=== PATIENT | female | born 1980 | race Caucasian/White ===

== ENCOUNTER 2020-03-28 16:04 | Emergency (ER) | payer BC, SELFPAY ==
--- NOTE | ~2020-03-28 | XR_ITS ---
XR chest 2V 03/28/2020 17:06 Indication: Cough. Diminished breath sounds. Procedure: 2 view chest Comparison: No prior studies for comparison. Findings: Bibasilar atelectasis. Heart size normal. No focal pneumonia, pleural effusion, edema or pn eumothorax. Impression: 1: Bibasilar atelectasis. Reviewed, dictated and finalized at location A. Impression: 1: Bibasilar atelectasis.
[2020-03-28 16:10] VITALS: BP 128/74; PULSE 86; RESP 28; TEMP 37; O2SAT 93
--- NOTE | 2020-03-28 16:17 | ED.SOB ---
HPI - SOB/Dyspnea General Stated Complaint: chest congestion/cough Time Seen by Provider: 03/28/20 16:17 Source: patient and RN notes reviewed Mode of arrival: ambulatory Limitations: no limitations History of Present Illness HPI Narrative: 40-year-old female presents with concern for cough, chest congestion, feeling short of breath. Reports she has not smoked for approximately 1 year. Reports prior to that she had a 2-year history of smoking. She denies fever, body aches, chills, sweats, rhinorrhea, nasal congestion, sore throat. Denies any interventions for her symptoms. She denies a history of asthma MD elicited complaint: cough Related Data Allergies Allergy/AdvReac Type Severity Reaction Status Date / Time No Known Allergies Allergy Verified 06/24/19 13:46 Review of Systems Review of Systems: Narrative: CONSTITUTIONAL: Denies malaise, chills, sweats, or fever. EYES: Denies visual changes, redness, or discharge. ENT: Denies rhinorrhea, congestion, sinus pain, otalgia and sore throat. CARDIOVASCULAR: Denies chest pain, palpitations, or edema. RESPIRATORY: Reports cough, chest congestion, ear dyspnea. GASTROINTESTINAL: Denies abdominal pain, nausea, vomiting, diarrhea SKIN: Denies rash or itching. MUSCULOSKELETAL: Denies myalgia. NEUROLOGIC: Denies headache. All systems reviewed & are unremarkable except as noted in HPI and below PMFSH Comments At time of signature, agree with nursing past medical, surgical, social and family history. There is no relevant family history pertinent to the presenting complaint Exam Narrative: Exam Narrative: GENERAL: Well-appearing, well-nourished, and in no acute distress. HEAD: Normocephalic EYES: PERRLA, conjunctivae clear ENT: Nares clear, turbinates erythematous, clear discharge. Mucous membranes moist. TM pearly sosa with dull light reflex bilaterally; no tragal tenderness. Oropharynx not erythematous without lesions. Tonsils not enlarged and without exudate, no drooling, no hoarseness, no trismus, uvula midline. NECK: Supple. No lymphadenopathy CHEST: Inspiratory and expiratory wheeze throughout, aeration poor, breath sounds equal. No rhonchi, rales, or stridor. No respiratory distress, speaks in full sentences. HEART: Regular rate and rhythm. No murmur heard. SKIN: Warm, dry, no rash. NEURO: Alert and oriented x3. PSYCH: Normal mood and affect Course Course Emergency Course: Patient is aware of diagnosis, understands and agrees to treatment plan. Anticipatory guidance given. Patient agrees to follow-up as directed and is aware of reasons to seek care at the emergency department. Portions of this record may have been created with voice recognition software Vital Signs Vital signs: Vital Signs Temperature 98.6 F 03/28/20 16:10 Pulse Rate 86 03/28/20 16:10 Respiratory Rate 28 H 03/28/20 16:10 Blood Pressure 128/74 03/28/20 16:10 Pulse Oximetry 93 03/28/20 16:10 Temperature 98.6 F 03/28/20 16:10 Pulse Rate 86 03/28/20 16:10 Respiratory Rate 28 H 03/28/20 16:10 Blood Pressure 128/74 03/28/20 16:10 Pulse Oximetry 93 03/28/20 16:10 Reviewed. MDM - SOB/Dyspnea MDM Narrative Medical decision making narrative: Differential diagnosis considered: Alfredo virus, strep pharyngitis, allergic rhinitis, upper respiratory tract infection, sinusitis, rhinosinusitis, nasopharyngitis. viral pharyngitis, otitis media, otitis externa, pneumonia, bronchitis, viral cough syndrome, viral syndrome, and influenza. Exam findings show no acute concerns or changes; patient is non-toxic appearing and is in no distress. Patient is appropriate for outpatient treatment and follow-up. Critical Care Time Critical Care Time Critical Care Time: No Discharge Plan Discharge Prescriptions: No Action amoxicillin-pot clavulanate [Augmentin] 875-125 mg tablet 1 tablet PO Q12H 10 Days Qty: 20 RF: 0
[2020-03-28] MEDS: ALBUTEROL SULFATE NEB 2.5 MG/3 ML INH INHALATION ×2 (16:29→17:23)
[2020-03-28] MEDS: IPRATROPIUM BR 0.02% INH SOLN 0.5 MG/2.5 ML VIAL INHALATION ×2 (16:30→17:23)
[2020-03-28] MEDS: methylPREDNISolone SOD SUCC 125 MG VIAL IM (16:30)
[2020-03-28 16:50] VITALS: PULSE 92; RESP 24; O2SAT 95
[2020-03-28 17:43] VITALS: PULSE 98; RESP 26; O2SAT 94
== END 2020-03-28 17:50 | disposition home or self-care (01) ==
PROVIDERS: Emergency Provider Nurse Practitioner
DX: J98.11 Atelectasis (principal); R06.2 Wheezing
CPT/HCPCS: 71046; 94640; 96372; 99213; G0463; J2930

== ENCOUNTER 2020-09-17 11:25 | Emergency (ER) | payer BC, SELFPAY ==
--- NOTE | 2020-09-17 11:27 | ED.SKABFB ---
HPI - Skin/Abscess/Foreign Bdy General Chief complaint: Skin/Abscess/Foreign Body Stated complaint: Rash Time Seen by Provider: 09/17/20 11:27 Source: patient and RN notes reviewed History of Present Illness HPI narrative: Patient is a 40-year-old female who presents the urgent care with complaints of rash to bilateral legs. Patient states that she has had the intermittent hives for the last couple weeks and she believes it is due to changing her detergent scent. Patient states that she had the rash prior to starting the new antibiotic, Bactrim. Patient has not taken anything [id number] for her rash. Denies of any upper respiratory issues such as difficulty breathing or swallowing. No other acute complaints. No acute distress noted. Patient aware of the plan of care. Some parts of this dictation were generated by voice recognition software and may contain typographical and/or grammatical inaccuracies. Related Data Home Medications Medication Instructions Recorded Confirmed sulfamethoxazole-trimethoprim 1 tablet PO BID 09/17/20 09/17/20 Allergies Allergy/AdvReac Type Severity Reaction Status Date / Time No Known Allergies Allergy Verified 09/17/20 11:35 Review of Systems Review of Systems: Narrative: CONSTITUTIONAL: Denies fever, chills, or sweats. EYES: Denies visual changes, redness, or discharge. ENT: Denies rhinorrhea, congestion, sore throat, or otalgia. CARDIOVASCULAR: Denies chest pain, palpitations, or edema. RESPIRATORY: Denies cough or dyspnea. GASTROINTESTINAL: Denies abdominal pain, nausea, vomiting, or diarrhea. GENITOURINARY: Denies dysuria or hematuria. SKIN: Reports of itchy raised rash to bilateral legs MUSCULOSKELETAL: Denies back pain, joint pain, or myalgia. NEUROLOGIC: Denies headache, numbness, or weakness. All other systems reviewed are negative, except as documented in HPI. PMFSH Comments At the time of my signature, I reviewed and agree with the nursing past medical, surgical, social, and family history. There is no relevant family history pertinent to the patient complaint. Exam Narrative: Exam Narrative: GENERAL: This is a well-nourished, well-developed patient, in no apparent distress. HEAD: normocephalic, atraumatic. EYES: PERRL. Sclera clear/white. Vision is grossly intact. EARS: External ears normal NOSE: External nose normal with no obvious nasal discharge, nares without redness, no rhinorrhea. THROAT: Mucous membranes moist NECK: Neck supple CARDIOVASCULAR: Regular rate and rhythm without murmurs, gallops, or rubs. RESPIRATORY: Clear to auscultation. Breath sounds equal bilaterally. No wheezes, rales, or rhonchi. SKIN: Pruritic raised urticaria noted to bilateral lower legs. Warm, intact with no suspicious lesions, good texture and turgor. NEURO: awake, alert, and oriented to person, place and time. There were no obvious focal neurologic abnormalities. EXTREMITIES: No clubbing, cyanosis, or edema. Course Vital Signs Vital signs: Vital Signs Temperature 97.5 F L 09/17/20 11:30 Pulse Rate 114 H 09/17/20 11:30 Respiratory Rate 14 09/17/20 11:30 Blood Pressure 141/73 H 09/17/20 11:30 Pulse Oximetry 99 09/17/20 11:30 Temperature 97.5 F L 09/17/20 11:36 Pulse Rate 114 H 09/17/20 11:36 Respiratory Rate 14 09/17/20 11:36 Blood Pressure 141/73 H 09/17/20 11:36 Pulse Oximetry 99 09/17/20 11:36 Reviewed-patient is informed that they may have pre-hypertension or hypertension based on a blood pressure reading in the department. I recommend the patient call the primary care provider listed on their discharge instructions or a physician of their choice this week to arrange follow-up for further evaluation of possible pre-hypertension or hypertension. MDM - Skin/Abscess/Foreign Bdy MDM Narrative Medical decision making narrative: Advised the patient to stop using the scented detergent. Be aware that hot baths will exacerbate the rash. Use prescription
[2020-09-17 11:30] VITALS: BP 141/73; PULSE 114; RESP 14; TEMP 36.4; O2SAT 99
[2020-09-17 11:36] VITALS: BP 141/73; PULSE 114; RESP 14; TEMP 36.4; O2SAT 99
== END 2020-09-17 12:05 | disposition home or self-care (01) ==
PROVIDERS: Emergency Provider Nurse Practitioner Family
DX: L50.9 Urticaria, unspecified (principal)
CPT/HCPCS: 99213; G0463

== ENCOUNTER 2021-05-28 17:29 | Emergency (ER) | payer BC, SELFPAY ==
[2021-05-28 17:46] VITALS: BP 115/73; PULSE 99; RESP 20; TEMP 37.1; O2SAT 96
--- NOTE | 2021-05-28 17:57 | ED.URI ---
HPI - URI/Sore Throat General Chief Complaint: Upper Respiratory Infection Stated Complaint: cough and wheezing Time Seen by Provider: 05/28/21 17:50 Source: patient and RN notes reviewed Mode of arrival: ambulatory Limitations: no limitations History of Present Illness HPI Narrative: Tr 41-year-old female patient who ambulated into the [facility]. Patient has a 4-day history of shortness of breath and wheezing. Patient denies any other symptoms. Patient states she had pneumonia last year and was prescribed albuterol. Patient just picked up the albuterol at the beginning of April for wheezing. Related Data Home Medications Medication Instructions Recorded Confirmed albuterol sulfate See Rx Instructions .ROUTE 05/28/21 05/28/21 .COMPLEX PRN trazodone 50 mg PO DAILY 05/28/21 05/28/21 Allergies Allergy/AdvReac Type Severity Reaction Status Date / Time No Known Allergies Allergy Verified 05/28/21 17:48 Review of Systems Review of Systems: CONSTITUTIONAL: Denies body aches, fever, chills, or sweats. EYES: Denies visual changes, redness, or discharge. ENT: Denies rhinorrhea, congestion, sore throat, or otalgia. CARDIOVASCULAR: Denies chest pain, palpitations, or edema. RESPIRATORY: + cough and wheezing . GASTROINTESTINAL: Denies abdominal pain, nausea, vomiting, or diarrhea. GENITOURINARY: Denies dysuria or hematuria. SKIN: Denies rash, itching, or wounds. MUSCULOSKELETAL: Denies back pain, joint pain, or myalgia. NEUROLOGIC: Denies headache, numbness, tingling, or weakness. PSYCH: Denies depression or anxiety. PMFSH Comments At time of signature, I have reviewed and agree with nursing past medical, surgical, social and family history unless otherwise noted. Please see nursing chart for further information. There is no relevant family history pertinent to the presenting complaint Exam Narrative: GENERAL: Well-appearing, well-nourished, and in no acute distress. HEAD: Normocephalic, atraumatic. EYES: EOMI. No redness or drainage. Conjunctivae normal. ENT: Mucous membranes pink and moist. Nares clear. No rhinorrhea. TMs normal bilaterally. Throat normal. Uvula midline. NECK: Normal AROM. Supple. No lymphadenopathy. CHEST: No respiratory distress. Decreased with wheezing in bilateral upper lobes MUSCULOSKELETAL: No bony tenderness. EXTREMITIES: Normal range of motion. No edema. SKIN: Warm, dry, no rash. Capillary refill normal. Normal skin turgor. NEURO: No focal deficits. Alert and oriented x3. Gait steady. PSYCH: Normal affect. No signs of depression or anxiety. Course Vital Signs Vital signs: Reviewed MDM - URI/Sore Throat MDM Narrative Medical decision making narrative: Patient has upper lobe wheezing and is decreased throughout. Patient states she has reacted this way since having pneumonia last year. Patient recently filled her albuterol on 05/08/2021 and has lost the inhaler at work. Patient will be prescribed albuterol and prednisone. Patient to follow-up with her primary care physician in 7 to 10 days for continued symptoms. Patient to go to ER for severe shortness of breath or any other issues Differential Diagnosis Differential diagnosis: Likely viral infection, bronchitis, influenza and other (Reactive airway disease) Critical Care Time Critical Care Time Critical Care Time: No Discharge Plan Discharge Clinical Impression: Reactive airway disease Qualifiers: Asthma severity: mild Asthma persistence: intermittent Asthma complication type: with acute exacerbation Qualified Code(s): J45.21 - Mild intermittent asthma with (acute) exacerbation Patient Disposition: Home, Self-Care Condition: Stable Instructions: Antibiotic Form, Reactive Airways Disease (ED) Additional Instructions: Take your albuterol every 4-6 hours as prescribed. Take the entire regimen of prednisone. Follow-up with your primary care physician in the next 7 to 10 days for follow-up. Go to the E
== END 2021-05-28 18:05 | disposition home or self-care (01) ==
PROVIDERS: Emergency Provider Nurse Practitioner Family
DX: J45.21 Mild intermittent asthma with (acute) exacerbation (principal)
CPT/HCPCS: 99213; G0463

== ENCOUNTER 2021-07-30 16:01 | Emergency (ER) | payer BC, SELFPAY ==
--- NOTE | 2021-07-30 16:04 | ED.SKABFB ---
HPI - Skin/Abscess/Foreign Bdy General Chief complaint: Skin/Abscess/Foreign Body Stated complaint: Skin Sore/ Right Foot Time Seen by Provider: 07/30/21 16:04 Source: patient and RN notes reviewed History of Present Illness HPI narrative: Patient is a 41-year-old female presents the urgent care with complaints of a painful rash to the bottom of the right foot. Patient states that it started approximately 1 week ago and seems to have gotten larger and more painful. Patient states that it feels like [id number] . States that she assumed it was due to her new safety shoes however she has been wearing those for the last 2 months without any problems. No other acute complaints. Patient has been wrapping the area with a Band-Aid. No acute distress noted. Patient aware of the plan of care. Some parts of this dictation were generated by voice recognition software and may contain typographical and/or grammatical inaccuracies. Related Data Allergies Allergy/AdvReac Type Severity Reaction Status Date / Time No Known Allergies Allergy Verified 07/30/21 16:22 Review of Systems Review of Systems: CONSTITUTIONAL: Denies fever, chills, or sweats. EYES: Denies visual changes, redness, or discharge. ENT: Denies rhinorrhea, congestion, sore throat, or otalgia. CARDIOVASCULAR: Denies chest pain, palpitations, or edema. RESPIRATORY: Denies cough or dyspnea. GASTROINTESTINAL: Denies abdominal pain, nausea, vomiting, or diarrhea. GENITOURINARY: Denies dysuria or hematuria. SKIN: Reports of a painful rash to the bottom of the right foot MUSCULOSKELETAL: Denies back pain, joint pain, or myalgia. NEUROLOGIC: Denies headache, numbness, or weakness. All other systems reviewed are negative, except as documented in HPI. PMFSH Comments At the time of my signature, I reviewed and agree with the nursing past medical, surgical, social, and family history. There is no relevant family history pertinent to the patient complaint. Exam Narrative: GENERAL: This is a well-nourished, well-developed patient, in no apparent distress. HEAD: normocephalic, atraumatic. EYES: PERRL. Sclera clear/white. Vision is grossly intact. EARS: External ears normal NOSE: External nose normal with no obvious nasal discharge, nares without redness, no rhinorrhea. THROAT: Mucous membranes moist NECK: Neck supple SKIN: Vesicular dermatitis noted to the sole of the right foot with surrounding erythema NEURO: awake, alert, and oriented to person, place and time. There were no obvious focal neurologic abnormalities. EXTREMITIES: No clubbing, cyanosis, or edema. Positive strong right pedal pulse with capillary refill less than 2 seconds Course Course Level of Care: Express Care Visit Vital Signs Vital signs: Vital Signs Temperature 97.9 F 07/30/21 16:08 Pulse Rate 71 07/30/21 16:08 Respiratory Rate 20 07/30/21 16:08 Blood Pressure 118/69 07/30/21 16:08 Pulse Oximetry 100 07/30/21 16:08 Temperature 97.9 F 07/30/21 16:08 Pulse Rate 71 07/30/21 16:08 Respiratory Rate 20 07/30/21 16:08 Blood Pressure 118/69 07/30/21 16:08 Pulse Oximetry 100 07/30/21 16:08 Reviewed MDM - Skin/Abscess/Foreign Bdy MDM Narrative Medical decision making narrative: Advised patient to complete the antiviral medication as prescribed. Use the prescription cream to the affected area and cover with gauze and [place] while working. Be sure to eat and drink with the medication. Keep the wound open to air while not at work. May use ice as needed for comfort. May use Tylenol/ibuprofen as needed for pain. If you develop any spreading the rash or severe discomfort?follow-up in the emergency room or with your PCP. Follow-up with your PCP within 2 to 5 days or for worsening symptoms or failure to improve. Differential Diagnosis Differential diagnosis: Likely abscess of skin or subcutaneous tissue, viral exanthem, urticaria, herpes zoster, cellulitis, eczema, impetigo and cont
[2021-07-30 16:08] VITALS: BP 118/69; PULSE 71; RESP 20; TEMP 36.6; O2SAT 100
== END 2021-07-30 16:30 | disposition home or self-care (01) ==
PROVIDERS: Emergency Provider Nurse Practitioner Family
DX: B02.9 Zoster without complications (principal)
CPT/HCPCS: 99213; G0463

== ENCOUNTER 2022-11-22 11:35 | Emergency (ER) | payer OTHER, SELFPAY ==
[2022-11-22 11:40] VITALS: BP 122/67; PULSE 106; RESP 20; TEMP 36.6; O2SAT 96
[2022-11-22 11:45] VITALS: BP 122/67; PULSE 106; RESP 20; TEMP 36.6; O2SAT 96
--- NOTE | 2022-11-22 11:48 | ED.URI ---
HPI - URI/Sore Throat General Chief Complaint: Upper Respiratory Infection Stated Complaint: Cough/Weezing History of Present Illness HPI Narrative: PATIENT PRESENTS WITH ASTHMA FLARE. STATES SHE IS USING HER INHALER AND STILL HAS WHEEZING. NO SHORTNESS OF BREATH AND NO CHEST PAIN. Related Data Home Medications Medication Instructions Recorded Confirmed albuterol sulfate 90 mcg/actuation 2 puff inhalation Q4-5H PRN Cough 11/22/22 11/22/22 aerosol inhaler Allergies Allergy/AdvReac Type Severity Reaction Status Date / Time No Known Allergies Allergy Verified 11/22/22 11:44 Review of Systems Review of Systems: CONSTITUTIONAL: DENIES FEVER, CHILLS, OR SWEATS. EYES: DENIES VISUAL CHANGES, REDNESS, OR DISCHARGE. ENT: DENIES RHINORRHEA, CONGESTION, SORE THROAT, OR OTALGIA. CARDIOVASCULAR: DENIES CHEST PAIN, PALPITATIONS, OR EDEMA. RESPIRATORY: DENIES COUGH OR DYSPNEA. GASTROINTESTINAL: DENIES ABDOMINAL PAIN, NAUSEA, VOMITING, OR DIARRHEA. GENITOURINARY: DENIES DYSURIA OR HEMATURIA. SKIN: DENIES RASH OR ITCHING. MUSCULOSKELETAL: DENIES BACK PAIN, JOINT PAIN, OR MYALGIA. NEUROLOGIC: DENIES HEADACHE, NUMBNESS, OR WEAKNESS. PSYCHIATRIC: DENIES ANXIETY OR DEPRESSION. PMFSH Comments AT TIME OF SIGNATURE, AGREE WITH NURSING PAST MEDICAL, SURGICAL, SOCIAL AND FAMILY HISTORY. THERE IS NO RELEVANT FAMILY HISTORY PERTINENT TO THE PRESENTING COMPLAINT Exam Narrative: GENERAL: WELL-APPEARING, WELL-NOURISHED, AND IN NO ACUTE DISTRESS. HEAD: NORMOCEPHALIC, ATRAUMATIC. EYES: PERRLA AND EOMI. ENT: NARES CLEAR, NO RHINORRHEA OR EPISTAXIS. MUCOUS MEMBRANES MOIST. NECK: SUPPLE. CHEST: CLEAR TO AUSCULTATION. NO RESPIRATORY DISTRESS. FEW SCATTERED EXPIRATORY WHEEZES HEART: REGULAR RATE AND RHYTHM. NO MURMUR HEARD. NORMAL PERIPHERAL PULSES. ABDOMEN: SOFT, NONTENDER, NONDISTENDED, NORMAL ACTIVE BOWEL SOUNDS. EXTREMITIES: NORMAL RANGE OF MOTION. NO EDEMA. SKIN: WARM, DRY, NO RASH. NEURO: NO FOCAL DEFICITS. ALERT AND ORIENTED X3. MALORIE COMA SCALE EYE OPENING: SPONTANEOUS 4 MALORIE COMA SCALE MOTOR: OBEYS COMMANDS 6 MALORIE COMA SCALE VERBAL: ORIENTED 5 MALORIE COMA SCALE TOTAL 15 Course Course Level of Care: Express Care Visit Vital Signs Vital signs: Vital Signs Temperature 36.6 C 11/22/22 11:40 Pulse Rate 106 H 11/22/22 11:40 Respiratory Rate 20 11/22/22 11:40 Blood Pressure 122/67 11/22/22 11:40 Pulse Oximetry 96 11/22/22 11:40 Oxygen Delivery Room Air 11/22/22 11:40 Temperature 36.6 C 11/22/22 11:45 Pulse Rate 106 H 11/22/22 11:45 Respiratory Rate 20 11/22/22 11:45 Blood Pressure 122/67 11/22/22 11:45 Pulse Oximetry 96 11/22/22 11:45 Oxygen Delivery Room Air 11/22/22 11:45 MDM - URI/Sore Throat Differential Diagnosis Differential diagnosis: Likely upper respiratory infection, croup, otitis media, sinusitis, viral infection, bronchitis, influenza and pharyngitis Discharge Plan Discharge Clinical Impression: Asthma, Asthma flare, Bronchitis Patient Disposition: Home, Self-Care Condition: Stable Instructions: Asthma (DC) Additional Instructions: USE INHALER PRESCRIBED FOLLOW UP WITH PCP AIN 3-4 DAYS IF ANY NEW OR WORSENING OF SYMPTOMS Prescriptions: New albuterol sulfate 90 mcg/actuation aero powdr breath act w/sensor 2 inh inhalation Q4-6H PRN (Reason: shortness of breath or wheezing) 14 Days Qty: 1 0RF prednisone 20 mg tablet 40 mg PO DAILY 5 Days Qty: 10 0RF No Action albuterol sulfate 90 mcg/actuation HFA aerosol inhaler 2 puff INHALATION Q4-5H PRN (Reason: Cough) Follow-up/Referrals: PHYSICIAN NOT ON STAFF,NONSTAFF [Primary Care Provider] -
== END 2022-11-22 11:54 | disposition home or self-care (01) ==
PROVIDERS: Emergency Provider Nurse Practitioner Family
DX: J45.909 Unspecified asthma, uncomplicated (principal)
CPT/HCPCS: 99213; G0463

== ENCOUNTER 2023-07-13 15:27 | Emergency (ER) | payer OTHER, SELFPAY ==
[2023-07-13 15:32] VITALS: BP 123/72; PULSE 100; RESP 16; TEMP 36.9; O2SAT 100
--- NOTE | 2023-07-13 15:36 | ED.DENTAL ---
HPI - Dental/Oral General Chief complaint: Dental/Oral Stated complaint: tooth/ear pain Source: patient, RN notes reviewed and old records reviewed Mode of arrival: ambulatory Limitations: no limitations History of Present Illness HPI Narrative: 43-year-old female presents to [facility] with complaints of right upper dental pain that started a couple days ago. Patient states taking [id number] medications no relief. Patient states does not have a dentist. MD Complaint: tooth pain Location: Tooth # (4) Related Data Allergies Allergy/AdvReac Type Severity Reaction Status Date / Time No Known Allergies Allergy Verified 07/13/23 15:34 Review of Systems Constitutional: Constitutional: Reports no additional constitutional complaints, Denies body ache(s), Denies chills, Denies fatigue, Denies fever(s) and Denies headache(s) Eyes: Eyes: Reports no additional eye complaints and Denies blurry vision ENT: Reports system reviewed and no additional complaints, except as documented, Reports dental pain, Denies vertigo, Denies dizziness, Denies ear discharge, Denies otalgia, Denies facial pain, Denies headache(s), Denies nasal congestion, Denies nasal discharge, Denies sinus pain, Denies sinus pressure and Denies sore throat Cardiovascular: Cardiovascular: Reports no additional cardiovascular complaints, Denies chest pain, Denies chest pain at rest, Denies rapid heart rate and Denies dyspnea Respiratory: Respiratory: Reports no additional respiratory complaints, Denies chest congestion, Denies cough, Denies pain on inspiration, Denies pain with cough and Denies dyspnea Gastrointestinal: Gastrointestinal: Denies abdominal pain, Denies diarrhea, Denies nausea and Denies vomiting Integumentary/Breasts: Skin/Breast: Denies rash Neurologic: Reports system reviewed and no additional complaints, except as documented, Denies vertigo, Denies dizziness and Denies headache(s) Endocrine: Endocrine: Denies fatigue PMFSH Comments At the time of my signature, I reviewed and agree with the nursing past medical, surgical, social, and family history. There is no relevant family history pertinent to the patient complaint. Exam Const: General: cooperative, healthy appearing, no acute distress and well nourished Nutritional Appearance: well nourished Orientation/consciousness: patient oriented x3 Limitations: no limitations HENMT: Head: normal to inspection and normocephalic Ears: external ears normal, TM's normal bilaterally, mastoids normal and Abnormal EAC present Face/Nose/Sinus: normal facial exam Face and sinus: normal facial exam Mouth: Yes Normal oral and palatal mucosa present, Yes oropharynx normal and Yes moist mucous membranes Teeth and gingiva: gingiva abnormal edematous and diffusely erythematous and poor dentition Teeth image: 1. tooth is broken Throat: tonsils normal, uvula midline and no uvular edema Eyes: General: appearance normal, both eyes and all related structures Sclera: sclerae normal Pupils: Equal, round and reactive pupils present Resp: Effort & Inspection: normal respiratory effort, able to speak in complete sentences, no audible wheezes, no cough, no respiratory distress and no retractions Skin: General skin exam: normal color and no rashes or lesions noted Neuro: General: patient oriented x3 Cranial nerves: Yes Equal, round and reactive pupils present Psych: Appearance: grossly normal Mental Status: mental status grossly normal Speech and movement: Normal speech and movement present Affect: normal affect Course Course Emergency Course: Patient is aware of diagnosis, understands and agrees to treatment plan.? Anticipatory guidance given.? Patient agrees to follow-up as directed and is aware of reasons to seek care at the emergency department. Some parts of this dictation were generated by voice recognition software and may contain typographical and/or grammatical inaccuracies. Level of Care: Expre
== END 2023-07-13 15:46 | disposition home or self-care (01) ==
PROVIDERS: Emergency Provider Registered Nurse
DX: K04.7 Periapical abscess without sinus (principal)
CPT/HCPCS: 99213; G0463

== ENCOUNTER 2023-11-25 12:10 | Emergency (ER) | payer OTHER, SELFPAY ==
[2023-11-25 12:20] VITALS: BP 128/67; PULSE 85; RESP 20; TEMP 35.6; O2SAT 100
--- NOTE | 2023-11-25 12:46 | ED.DENTAL ---
HPI - Dental/Oral General Chief complaint: Dental/Oral Stated complaint: Facial Swelling/Toothache Time Seen by Provider: 11/25/23 13:06 Mode of arrival: ambulatory Limitations: no limitations History of Present Illness HPI Narrative: 43-year-old female presents with concern for several day history of the dental pain, reports her face started swelling yesterday. She reports she has a broken tooth in the area that has been broken for a while. She denies fever, body aches, chills, sweats, headache, trouble swallowing. MD Complaint: tooth pain Related Data Allergies Allergy/AdvReac Type Severity Reaction Status Date / Time No Known Allergies Allergy Verified 11/25/23 12:29 Review of Systems Review of Systems: CONSTITUTIONAL: Denies malaise, chills, sweats, or fever. EYES: Denies visual changes ENT: Denies rhinorrhea, congestion, sinus pain, otalgia or sore throat. Reports right upper dental pain and facial swelling CARDIOVASCULAR: Denies chest pain, palpitations RESPIRATORY: Denies cough or dyspnea. SKIN: Denies rash or itching. MUSCULOSKELETAL: Denies myalgia. NEUROLOGIC: Denies numbness, weakness, or headache. All systems reviewed & are unremarkable except as noted in HPI and below PMFSH Comments At time of signature, agree with nursing past medical, surgical, social and family history. There is no relevant family history pertinent to the presenting complaint Exam Narrative: GENERAL: Well-appearing, well-nourished, and in no acute distress. HEAD: Normocephalic, atraumatic. EYES: PERRLA, sclera clear ENT: Nares clear, turbinates pink, no rhinorrhea or epistaxis. Mucous membranes moist. Oropharynx without erythema or lesions. Tonsils not enlarged and without exudate. Missing teeth, broken teeth, caries, right cheek swelling and tenderness noted NECK: Supple. No lymphadenopathy. CHEST: No respiratory distress. Speaks in full sentences. HEART: Regular rate and rhythm. SKIN: Warm, dry, no visible rash. NEURO: Alert and oriented x3. PSYCH: Normal mood and affect Course Course Emergency Course: Patient is aware of diagnosis, understands and agrees to treatment plan. Anticipatory guidance given. Patient agrees to follow-up as directed and is aware of reasons to seek care at the emergency department. Portions of this record may have been created with voice recognition software Level of Care: Express Care Visit Vital Signs Vital signs: Vital Signs Temperature 96.1 F L 11/25/23 12:20 Pulse Rate 85 11/25/23 12:20 Respiratory Rate 20 11/25/23 12:20 Blood Pressure 128/67 11/25/23 12:20 Pulse Oximetry 100 11/25/23 12:20 Oxygen Delivery Room Air 11/25/23 12:20 Temperature 96.1 F L 11/25/23 12:20 Pulse Rate 85 11/25/23 12:20 Respiratory Rate 20 11/25/23 12:20 Blood Pressure 128/67 11/25/23 12:20 Pulse Oximetry 100 11/25/23 12:20 Oxygen Delivery Room Air 11/25/23 12:20 Reviewed. MDM - Dental/Oral MDM Narrative Medical decision making narrative: I evaluated this in the [facility] care. History is obtained from patient who is an independent historian and physical exam was performed.? Available medical records were reviewed. ? Exam findings and relevant testing show no acute concerns or changes; patient is non-toxic appearing and is in no distress. Patients pain and complaint coupled with physical findings are consistant with dentalgia. There are no focal signs of space occupying lesions that are compromising to the airway; no dysphagia, odynophagia, dysphonia, or dyspnea. No uvular deviation or soft palate edema. Patient is non-toxic appearing. The floor of the mouth is soft with no signs of Willis's Angina; no induration below mandible, no neck pain. Patient is without trismus or drooling and able to swallow secretions. Patient is felt appropriate for discharge home with dental follow up. ? Differential diagnosis and treatment plan were discussed with the patient.
== END 2023-11-25 13:25 | disposition home or self-care (01) ==
PROVIDERS: Emergency Provider Nurse Practitioner
DX: K04.7 Periapical abscess without sinus (principal)
CPT/HCPCS: 99213; G0463

== ENCOUNTER 2024-02-17 11:45 | Emergency (ER) | payer OTHER, SELFPAY ==
--- NOTE | 2024-02-17 11:50 | ED.URI ---
HPI - URI/Sore Throat General Chief Complaint: Upper Respiratory Infection Stated Complaint: Runny Nose/Cough/Sore Throat Time Seen by Provider: 02/17/24 12:22 Source: patient and RN notes reviewed Mode of arrival: ambulatory Limitations: no limitations History of Present Illness HPI Narrative: 43-year-old female presents with concern for 4 day history of runny nose, cough, sore throat. She reports she feels like she is wheezing. She reports sweats. She denies fever. MD elicited complaint: cough and sore throat Related Data Allergies Allergy/AdvReac Type Severity Reaction Status Date / Time No Known Allergies Allergy Verified 11/25/23 12:29 Review of Systems Review of Systems: CONSTITUTIONAL: Denies malaise, chills, fever. Reports sweats EYES: Denies visual changes, redness, or discharge. ENT: Reports rhinorrhea, congestion, sore throat. CARDIOVASCULAR: Denies chest pain, palpitations, or edema. RESPIRATORY: Reports cough, wheezing. Denies dyspnea. GASTROINTESTINAL: Denies abdominal pain, nausea, vomiting, diarrhea SKIN: Denies rash or itching. MUSCULOSKELETAL: Denies myalgia. NEUROLOGIC: Denies headache. All systems reviewed & are unremarkable except as noted in HPI and below PMFSH Comments At time of signature, agree with nursing past medical, surgical, social and family history. There is no relevant family history pertinent to the presenting complaint Exam Narrative: GENERAL: Well-appearing, well-nourished, and in no acute distress. HEAD: Normocephalic EYES: PERRLA, conjunctivae clear ENT: Nares clear. Mucous membranes moist. TM pearly sosa with dull light reflex bilaterally; no tragal tenderness. Oropharynx not erythematous without lesions. Tonsils not enlarged and without exudate, no drooling, no hoarseness, no trismus, uvula midline. NECK: Supple. No lymphadenopathy CHEST: Clear to auscultation, breath sounds equal. No wheezing, rhonchi, rales, or stridor. No respiratory distress, speaks in full sentences. HEART: Regular rate and rhythm. No murmur heard. SKIN: Warm, dry, no rash. NEURO: Alert and oriented x3. PSYCH: Normal mood and affect Course Course Emergency Course: Patient is aware of diagnosis, understands and agrees to treatment plan. Anticipatory guidance given. Patient agrees to follow-up as directed and is aware of reasons to seek care at the emergency department. Portions of this record may have been created with voice recognition software Level of Care: Express Care Visit Vital Signs Vital signs: Reviewed. MDM - URI/Sore Throat MDM Narrative Medical decision making narrative: Differential diagnosis considered: Alfredo virus, strep pharyngitis, allergic rhinitis, upper respiratory tract infection, sinusitis, rhinosinusitis, nasopharyngitis. viral pharyngitis, otitis media, otitis externa, pneumonia, bronchitis, viral cough syndrome, viral syndrome, and influenza. Exam findings show no acute concerns or changes; patient is non-toxic appearing and is in no distress. Patient is appropriate for outpatient treatment and follow-up. Lab Data Attestation: I reviewed the patient's lab results. Critical Care Time Critical Care Time Critical Care Time: No Discharge Plan Discharge Clinical Impression: COVID Patient Disposition: Home, Self-Care Condition: Stable Instructions: How to Recover from COVID-19 at Home (ED) Additional Instructions: Your rapid COVID test is positive. COVID is a virus, antibiotics are not effective against viruses. Your body has to kill viruses. ? Stay home when you are sick, except to get medical care. ? Stay home until your symptoms have improved in you have not had a fever for 24 hours ? If you are self isolating at home where others live, use a separate room and bathroom for sick household members (if possible). Clean any shared rooms as needed, to avoid transmitting the virus. ? Wash your hands often with soap and water for at least 20 sec
[2024-02-17 11:54] VITALS: BP 120/69; PULSE 71; RESP 16; TEMP 36.9; O2SAT 100
[2024-02-17 11:57] VITALS: BP 120/69; PULSE 71; RESP 16; TEMP 36.9; O2SAT 100
[2024-02-17 12:15] LABS: EDCOVIDSCREEN Positive (Negative); EDINFLUASCREEN Negative (Negative); EDINFLUBSCREEN Negative (Negative)
== END 2024-02-17 12:40 | disposition home or self-care (01) ==
PROVIDERS: Emergency Provider Nurse Practitioner
DX: U07.1 COVID-19 (principal)
CPT/HCPCS: 87426; 87804; 99213; G0463

== ENCOUNTER 2025-03-12 16:05 | Emergency (ER) | payer OTHER, SELFPAY ==
[2025-03-12 16:08] VITALS: BP 122/74; PULSE 100; RESP 20; TEMP 36.6; O2SAT 93
[2025-03-12 16:24] VITALS: O2SAT 96
[2025-03-12] MEDS: IPRATROPIUM 0.5 MG/ALBUTEROL SULFATE 2.5 MG (BASE) AMPUL.NEB 3 ML INHALATION (16:37)
[2025-03-12 16:38] VITALS: PULSE 100; RESP 20; O2SAT 96
[2025-03-12 16:49] VITALS: PULSE 91; RESP 20; O2SAT 97
--- NOTE | 2025-03-12 17:02 | ED.URI ---
HPI - URI/Sore Throat General Chief Complaint: Upper Respiratory Infection Stated Complaint: cough/wheezing Source: patient and RN notes reviewed Mode of arrival: ambulatory Limitations: no limitations History of Present Illness HPI Narrative: 44-year-old female presents Express Care complaining of cough and wheezing for approximally 5 days. Patient was she has a history of asthma, she was also told by a PCP that she has COPD possibly. Patient has been using albuterol inhaler with some relief. Patient denies any difficulty breathing, shortness of breath, nausea vomiting, fevers, eczema chills, any other upper respiratory symptoms, chest pains, or any other symptoms. Related Data Home Medications ?Medication ?Instructions ?Recorded ?Confirmed ?Last Taken ?Type albuterol sulfate 90 mcg/actuation inhalation 03/12/25 Unknown History aerosol inhaler Allergies Allergy/AdvReac Type Severity Reaction Status Date / Time No Known Allergies Allergy Verified 03/12/25 16:21 Review of Systems Review of Systems: CONSTITUTIONAL: Denies fever, chills, or sweats. EYES: Denies visual changes, redness, or discharge. ENT: Denies rhinorrhea, congestion, sore throat, or otalgia. CARDIOVASCULAR: Denies chest pain, palpitations, or edema. RESPIRATORY: Denies difficulty breathing or dyspnea. Positive for wheezing and cough GASTROINTESTINAL: Denies abdominal pain, nausea, vomiting, or diarrhea. GENITOURINARY: Denies dysuria or hematuria. SKIN: Denies rash or itching. MUSCULOSKELETAL: Denies back pain, joint pain, or myalgia. NEUROLOGIC: Denies headache, numbness, or weakness. PSYCHIATRIC: Denies anxiety or depression. All other systems reviewed are negative, except as documented in HPI. PMFSH Comments At the time of my signature, I reviewed and agree with the nursing past medical, surgical, social, and family history. There is no relevant family history pertinent to the patient complaint. Exam Narrative: GENERAL: This is a well-nourished, well-developed adult, in no apparent distress. They are non ill-appearing, nontoxic appearing. HEAD: normocephalic, atraumatic. EYES: Sclera clear/white. Conjunctiva normal. Vision is grossly intact. Extraocular movements intact EARS: External ears normal, auditory canals clear and without drainage, TMs normal without perforation. Hearing grossly intact. NOSE: External nose normal with no obvious nasal discharge, nasal turbinates without redness, no rhinorrhea. THROAT: Mucous membranes moist, posterior pharynx clear, without erythema or swelling. Uvula midline. NECK: Neck supple, non-tender without lymphadenopathy, masses or thyromegaly. CARDIOVASCULAR: Regular rate and rhythm without murmurs, gallops, or rubs. RESPIRATORY: Inspiratory wheezes throughout. Breath sounds equal bilaterally. No rales, or rhonchi. Respiratory rate normal, respiratory effort nonlabored, no respiratory distress. patient able speak in full sentences. GASTROINTESTINAL: Abdomen soft, non-tender, nondistended. Bowel sounds are active. No hepato-splenomegaly, or palpable masses. No guarding. SKIN: warm, Dry, intact with no suspicious lesions or rash, good texture and turgor. NEURO: awake, alert, and oriented to person, place and time. There were no obvious focal neurologic abnormalities. EXTREMITIES: No joint tenderness, effusion, or edema noted. BACK: Nontender without deformity. No CVA tenderness. Course Course Emergency Course: Patient reports feeling significantly better after do nebulizer treatment. Repeat lung sounds reveal improved aeration, end inspiratory wheezes heard. Level of Care: Express Care Visit Vital Signs Vital signs: Vital Signs Temperature 97.8 F 03/12/25 16:08 Pulse Rate 100 03/12/25 16:08 Respiratory Rate 20 03/12/25 16:08 Blood Pressure 122/74 03/12/25 16:08 Pulse Oximetry 93 03/12/25 16:08 Oxygen Delivery Room Air 03/12/25 16:08 Temperature 97.8 F 03/12/25 16:08 Pulse Rate 91 03/12/25 16:49 Respiratory Rate 20 03/12/25 16:49 Blood Pressure 122/74 03/12/25 16:08 Pulse Oximetry 97 03/12/25 16:49 Oxygen Delivery Room Air 03/12/25 16:24 Reviewed MDM - URI/Sore Throat MDM Narrative Medical decision making narrative: Patient reports feeling significantly better after do nebulizer treatment. Patient has improved aeration with it only and inspiratory wheezes. Patient says she has a history of asthma and may be a diagnosis of COPD. Patient only uses albuterol inhaler. Will send her home with a prescription of prednisone for likely a COPD exacerbation. Advised to follow-up with PCP in the next 3-5 days for further evaluation and management. Discussed physical exam findings. Advised supportive measures and signs/symptoms to go to the ER. Pt is appropriate for outpt treatment and f/u. Differential Diagnosis Differential diagnosis: Likely upper respiratory infection, viral infection, bronchitis and other (COPD exacerbation, asthma exacerbation, chronic bronchitis) Critical Care Time Critical Care Time Critical Care Time: No Discharge Plan Discharge Clinical Impression: COPD exacerbation Patient Disposition: Home Condition: Stable Instructions: COPD (Chronic Obstructive Pulmonary Disease) (ED) Additional Instructions: Take prednisone as directed. Use your inhaler as needed for shortness of breath or wheezing. Follow-up with your PCP in 3-5 days. If your breathing gets worse, does not resolve with the inhaler, you cannot speak in full sentences, nausea, vomiting, chest pains, fevers, or any serious concerns please go to the ER immediately. Please stop vaping. Patient Language: Bulgarian Prescriptions: New prednisone 20 mg tablet 40 mg PO DAILY 5 Days Qty: 10 0RF No Action albuterol sulfate 90 mcg/actuation HFA aerosol inhaler INHALATION Follow-up/Referrals: Freeman,Edie Rosenberg APRN [Primary Care Provider, Unknown] Time of Disposition: 17:01
--- OUTSIDE RECORDS SUMMARY | 2025-03-12 17:26 | XMS_ITS | Encounter Summary ---
Author Organization [facility] Address [address] [place] [address] Phone Care Team Providers Care Environmental Technology Professor Name Role Phone Edie Millard APRN, PEDIATRIC PSYCHIATRIST Primary Care Prov ider Reason for Visit * Reason Comments Medication Refill Encounter Details Date Type Department Care Team (Late st Contact Info) Description 10/15/2021 Refill [facility] [address] [place] [phone] Edie Millard APRN, PEDIATRIC PSYCHIATRIST [address] [phone] Medication Refill Social History Tobacco Use Types Packs/Day Years Used Date Smoking Tobacco: Former Cigarettes 1 10 0 05/30/2007 - 05/30/2017 Smokeless Tobacco: Never Alcohol Use Standard Drinks/Week Comments Yes 0 (1 standard drink = 0.6 oz pur e alcohol) socially PHQ-2 Answer Date Recorded Total Score - Questions 1-9 0 03/0 12/2021 Sexually Active Control Partners Comments Not Currently Comments No Sex and Gender Information Value Date Recorded Sex Assigned at Not on file Legal Sex Female 9:13 PM CDT Gender Identity Not on file Sexual Orientation Not on file documented as of this encounter Miscellaneous Notes * Telephone Encounter - Chelo Zepeda RN - 10/16/2021 8:10 AM CDT PRN medication requires review from provider Per nursing clinical judgement, provider to review and approve the medication(s) order(s) if appropriate. Requested Prescriptions Pending Prescriptions Disp Refills albuterol 108 (90 Base) MCG/ACT Aerosol Solution [Pharmacy Med Name: ALBUTEROL HFA INH (200 PUFFS)8.5GM] 8.5 g 2 Sig: INHALE 2 PUFFS BY MOUTH EVERY 4 HOURS NEEDED FOR COUGH OR WHEEZING Short Acting Inhaled Beta-Agonists Protocol Passed - 10/15/2021 4:04 PM Passed - Visit with relevant provider in past 12 months or upcoming 90 days Recent Visits Date Type Provider Dept 08/04/21 Office Visit Edie Millard APRN, CNP [facility] 03/11/21 Office Visit Edie Millard APRN, CNP [facility] 02/27/21 Office Visit Edie Millard APRN, CNP [facility] 02/18/21 Office Visit Edie Millard APRN, CNP [facility] 02/06/21 Office Visit Edie Millard APRN, CNP [facility] Showing recent visits within past 365 days and meeting all other requirements Future Appointments No visits were found meeting these conditions. Showing future appointments within next 90 days and meeting all other requirements documented in this encounter Plan of Treatment Not on file documented as of this encounter Visit Diagnoses Diagnosis Dyspnea on exertion Other dyspnea and respiratory abnormality documented in this encounter Additional Health Concerns Assessment Noted Time PHQ-9 Depression Total Score: 0 02/19/20 7:31 AM CDT documented as of this encounter Care Teams Environmental Technology Professor Relationship Specialty Start Date End Date Edie Millard APRN, CNP [address] [phone] PCP - General Advanced Practice Nurse 04/29/20 documented as of this encounter
--- OUTSIDE RECORDS SUMMARY | 2025-03-12 17:26 | XMS_ITS | Encounter Summary ---
Author Organization [facility] Address [address] [place] [address] Phone Care Team Providers Care Multi Craft Maintenance Technician Name Role Phone Edie Millard APRN, DISPLAYER Primary Care Prov ider Reason for Visit * Reason Comments Medication Refill Encounter Details Date Type Department Care Team (Late st Contact Info) Description 03/12/2022 Refill [facility] [address] [place] [phone] Edie Millard APRN, DISPLAYER #[address] [phone] Medication Refill Social History Tobacco [...] Telephone Encounter - Chelo Zepeda RN - 03/15/2022 8:50 AM CDT PRN medication requires review from [...] Short Acting Inhaled Beta-Agonists Protocol Passed - 03/12/2022 5:40 PM Passed - Visit with relevant provider in past 12 months or upcoming 90 days Recent Visits Date Type Provider Dept 08/04/21 Office Visit Edie Millard APRN, [facility] Showing recent visits within past 365 days [...] Time PHQ-9 Depression Total Score: 0 02/19/20 21 7:31 AM CDT documented as of this encounter Care Teams Multi Craft Maintenance Technician Relationship Specialty Start Date End Date Edie Millard APRN, DISPLAYER #[address] [phone] PCP - General Advanced Practice Nurse 04/29/20 documented as of this encounter
--- OUTSIDE RECORDS SUMMARY | 2025-03-12 17:26 | XMS_ITS | Encounter Summary ---
Author Organization [facility] Address [address] [place] [address] Phone Care Team Providers Care Emergency Department Coordinator Name Role Phone Edie Millard APRN, CLUTCH ASSEMBLER Primary Care Prov ider Reason for Visit * Reason Comments Medication Refill Encounter Details Date Type Department Care Team (Late st Contact Info) Description 10/12/2022 Refill [facility] [address] [place] [phone] Hal Cochran MD #[address] [address] Medication Refill Social History Tobacco Use Types [...] encounter Miscellaneous Notes * Telephone Encounter - aJyda Duckworth RMA - 10/15/2022 9:14 AM CDT LVm * Telephone Encounter - Jayda Duckworth RMA - 10/14/2022 11:16 AM CDT LVM to schedule * Telephone Encounter - Edie Millard APRN, CNP - 10/13/2022 1:25 PM CDT Patient needs appointment. * Telephone Encounter - Mindy Jaime RN - 10/13/2022 10:11 AM CDT Do you want to refill this? Last OV 08/04/21 with Edie. No scheduled upcoming OV's. Medication failed the protocol, provider to review and approve the medication order if appropriate. Requested Prescriptions Pending Prescriptions Disp Refills albuterol 108 (90 Base) MCG/ACT Aerosol Solution [Pharmacy Med Name: ALBUTEROL HFA INH (200 PUFFS) 8.5GM] 8.5 g 2 Sig: INHALE 2 PUFFS BY MOUTH EVERY 4 HOURS NEEDED FOR COUGH OR WHEEZING Short Acting Inhaled Beta-Agonists Protocol Failed - 10/12/2022 5:23 PM Failed - Visit with relevant provider in past 12 months or upcoming 90 days Recent Visits No visits were found meeting these conditions. Showing recent visits within past 365 days [...] documented as of this encounter Care Teams Emergency Department Coordinator Relationship Specialty Start Date End Date Edie Millard APRN, CNP [address] [phone] PCP - General Advanced Practice Nurse 04/29/20 documented as of this encounter
--- OUTSIDE RECORDS SUMMARY | 2025-03-12 17:26 | XMS_ITS | Encounter Summary ---
Author Organization [facility] Address [address] [place] [address] Phone Care Team Providers Care Business Systems Advisor Name Role Phone Edie Millard APRN, FIGURINE MAKER Primary Care Prov ider Reason for Visit * Reason Comments Medication Refill Encounter Details Date Type Department Care Team (Late st Contact Info) Description 03/03/2021 Refill [facility] - [facility] Medicine [facility] [address] [place] [phone] Edie Millard APRN, FIGURINE MAKER #[address] [phone] Medication Refill Social History Tobacco Use Types Packs/Day Years Used Date Smoking Tobacco: Former Cigarettes 1 10 0 05/30/2007 - 05/30/2017 Smokeless Tobacco: Never Alcohol Use Standard Drinks/Week Comments Yes 0 (1 standard drink = 0.6 oz pur e alcohol) socially PHQ-2 Answer Date Recorded Total Score - Questions 1-9 0 01/29 Sexually Active Control Partners Comments Not Currently Comments No Sex and Gender Information Value Date Recorded Sex Assigned at Not on file Legal Sex Female 9:13 PM CDT Gender Identity Not on file Sexual Orientation Not on file COVID-19 Exposure Response Date Recorded In the last month, have you been in contact with someone who was confirmed or suspected to have Coronavirus / COVID-19? No / Unsure 02/27/2021 3:29 PM CDT documented as of this encounter Miscellaneous Notes * Telephone Encounter - Chelo Zepeda RN - 03/03/2021 11:17 AM CDT Medication failed the protocol, provider to review and approve the medication order if appropriate. Requested Prescriptions Pending Prescriptions Disp Refills traZODone (DESYREL) 50 MG Tablet [Pharmacy Med Name: TRAZODONE 50MG TABLETS] 90 Tablet 1 Sig: TAKE 1 TABLET BY MOUTH EVERY NIGHT NEEDED FOR SLEEP Serotonin Modulators (6 Month Refill Only) Protocol Failed - 03/03/2021 9:31 AM Failed - Patient has established therapy with Serotonin Modulators for at least 6 months Passed - No test in the past 12 months or most recent test was negative Passed - No active on record Passed - Visit with relevant provider in past 6 months or upcoming 90 days Recent Visits Date Type Provider Dept 02/27/21 Office Visit Edie Millard APN, CNP [facility] 02/18/21 Office Visit Edie Millard APN, [facility] 02/06/21 Office Visit Edie Millard APN, [facility] 09/19/20 Office Visit Edie Millard APN, [facility] Showing recent visits within past 182 days and meeting all other requirements Future Appointments Date Type Provider Dept 03/11/21 Appointment Edie Millard APN, CNP [facility] Showing future appointments within next 90 days and meeting all other requirements Passed - Has an encounter in the past 6 months with a depression or anxiety visit diagnosis Passed - No PRN Use for Trazodone documented in this encounter Plan of Treatment Not on file documented as of this encounter Visit Diagnoses Diagnosis Psychophysiological insomnia Persistent disorder of initiating or maintaining sleep documented in this encounter Additional Health Concerns Assessment Noted Time PHQ-9 Depression Total Score: 0 02/19/20 7:31 AM CDT documented as of this encounter Care Teams Business Systems Advisor Relationship Specialty Start Date End Date Edie Millard APRN, FIGURINE MAKER [address] [place] [phone] PCP - General Advanced Practice Nurse 04/29/20 documented as of this encounter
--- OUTSIDE RECORDS SUMMARY | 2025-03-12 17:26 | XMS_ITS | Clinical Summary ---
Author Organization [facility] Address [address] [place] [address] [address] Prov[address] Care Court Crier Name Role Phone No, Physician Primary Care Provider [phone] Allergies No known active allergies Medications albuterol (ProAir RespiClick) 90 mcg/actuation inhalerIndicatio ns:Acute upper respiratory infection Inhale 2 puffs every 6 (six) hours as needed for wheezing 1 Inhaler 0 Active Additional Information Patient not taking.Reported on 03/02/2021 predniSONE (DELTASONE) 10 mg tabletIndication s:Acute upper respiratory infection Take 4 tablets days 1-3, take 3 tablets days 4-6, take 2 tablets days 7-9, take 1 tablet days 10-14 32 tablet 0 Active Additional Information Patient not taking.Reported on 12/31/2020 albuterol HFA (Ventolin HFA) 90 mcg/actuation inhaler Inhale 2 puffs every 4 (four) hours as needed for wheezing or shortness of breath 8 g 0 Active Additional Information Patient not taking.Reported on 04/17/2021 traZODone (DESYREL) 50 mg tablet TAKE 1 TABLET BY MOUTH EVERY NIGHT NEEDED FOR SLEEP 1 Active Active Problems No known active problems Surgical History Surgery Date Site/Laterality Comments HERNIA REPAIR Medical History Medical History Date Comments No pertinent past medical history 04/29/2020 Family History Medical History Relation Name Comments Diabetes Father No Known Problems Mother Relation Name Status Comments Father Mother Alive Social History Tobacco Use Types Packs/Day Years Used Date Smoking Tobacco: Never Personal Safety Answer Date Recorded Getting School Help Needed Not on file 08/12 Comments Unknown Sex and Gender Information Value Date Recorded Sex Assigned at Not on file Legal Sex Female 3:26 PM ABSORPTION PLANT OPERATOR Gender Identity Not on file Sexual Orientation Not on file Occupation Industry Job Start Date Job End Date Not on file Not on file Not on file Not on file Obstetrics History Para Term AB IAB SAB Ectopic Multiple Livin g Live Births 1 1 1 1 1 Date Outcome GA Total Labor Labor/2nd/3rd Weight Sex Type Anes PTL Teri A1 A5 Name Clin 2000 Term 3.345 kg (7 lb 6 oz) M Vag-S pont Living Last Filed Vital Signs Vital Sign Reading Time Taken Comments Blood Pressure 114/64 04/17/2021 1:25 PM ABSORPTION PLANT OPERATOR Pulse 93 04/17/2021 1:25 PM ABSORPTION PLANT OPERATOR Temperature 36.5 C (97.7 F) 04/17/2021 1:25 PM ABSORPTION PLANT OPERATOR Respiratory Rate 16 04/17/2021 1:25 PM ABSORPTION PLANT OPERATOR Oxygen Saturation 98% 04/17/2021 1:25 PM ABSORPTION PLANT OPERATOR Inhaled Oxygen Concentration - - Weight 89.8 kg (198 lb) 04/17/2021 1:25 PM ABSORPTION PLANT OPERATOR Height 157.5 cm (5' 2) 04/17/2021 1:25 PM ABSORPTION PLANT OPERATOR Body Mass Index 36.21 04/17/2021 1:25 PM ABSORPTION PLANT OPERATOR Plan of Treatment Not on file Insurance [facility] CHOICE PLUS Care Teams Court Crier Relationship Specialty Start Date End Date No, Physician PCP - General 04/28/20
--- OUTSIDE RECORDS SUMMARY | 2025-03-12 17:26 | XMS_ITS | Clinical Summary ---
Author Organization [facility] Address [address] [place] [address] Phone Care Team Providers Care Sanitation Associate Name Role Phone Edie Millard APRN, CNP Primary Care Prov ider Allergies No known active allergies Medications albuterol 108 (90 Base) MCG/ACT Aerosol SolutionIndicat ions:Upper respiratory tract infection, unspecified type INHALE 2 PUFFS BY MOUTH EVERY 4 HOURS NEEDED FOR WHEEZING OR COUGH 18 g 1 03/06/20 25 Active albuterol 108 (90 Base) MCG/ACT Aerosol SolutionIndicat ions:Upper respiratory tract infection, unspecified type INHALE 2 PUFFS BY MOUTH EVERY 4 HOURS NEEDED FOR WHEEZING OR COUGH 6.7 g 01/15/20 25 025 Discontinued albuterol 108 (90 Base) MCG/ACT Aerosol SolutionIndicat ions:Upper respiratory tract infection, unspecified type INHALE 2 PUFFS BY MOUTH EVERY 4 HOURS NEEDED FOR WHEEZING OR COUGH 6.7 g 02/19/20 25 025 Discontinued Active Problems No known active problems Encounters Date Type Department Care Team Description 03/05/2025 Refill [facility] [address] [place] [id number] Edie Millard APRN, SUPERVISOR CELL ROOM Medication Refill 02/18/2025 Refill [facility] [address] [place] [phone] Edie Millard APRN, SUPERVISOR CELL ROOM Medication Refill 01/12/2025 Refill [facility] [address] [place] [address] Edie Millard APRN, SUPERVISOR CELL ROOM Medication Refill from Last 3 Months Immunizations Immunization Administration Dates Next Due Covid-19, Mrna, Lnp-s, PF, 1 00 mcg/0.5 mL Dose (Moderna) 11/12/2020,10/15/2020 Family History Medical History Relation Name Comments Diabetes Father Chronic Obstructive Pulmonary Disease Mother Relation Name Status Comments Father Alive Maternal Grandfather Maternal Grandmother Mother Alive Paternal Grandfather Paternal Grandmother Social History Tobacco Use Types Packs/Day Years Used Date Smoking Tobacco: Former Cigarettes 1 10 0 05/30/2007 - 05/30/2017 Smokeless Tobacco: Never Tobacco Cessation:Counseling Given: No Alcohol Use Standard Drinks/Week Comments Yes 0 (1 standard drink = 0.6 oz pur e alcohol) socially PHQ-2 Answer Date Recorded Total Score - Questions 1-9 0 02/27 Sexually Active Control Partners Comments Not Currently Comments No Sex and Gender Information Value Date Recorded Sex Assigned at Not on file Legal Sex Female 9:13 PM CDT Gender Identity Not on file Sexual Orientation Not on file Last Filed Vital Signs Vital Sign Reading Time Taken Comments Blood Pressure 124/74 08/23/2023 3:50 PM CDT Pulse 85 06/12/2024 2:18 PM EXCELSIOR MACHINE OPERATOR Temperature 36.3 C (97.4 F) 06/12/2024 2:18 PM EXCELSIOR MACHINE OPERATOR Respiratory Rate 16 06/12/2024 2:18 PM EXCELSIOR MACHINE OPERATOR Oxygen Saturation 99% 06/12/2024 2:18 PM EXCELSIOR MACHINE OPERATOR Inhaled Oxygen Concentration - - Weight 98.9 kg (218 lb) 06/12/2024 2:18 PM EXCELSIOR MACHINE OPERATOR Height 157.5 cm (5' 2) 06/12/2024 2:18 PM EXCELSIOR MACHINE OPERATOR Body Mass Index 39.87 06/12/2024 2:18 PM EXCELSIOR MACHINE OPERATOR Plan of Treatment Health Maintenance Due Date Last Done Comments Hepatitis C Virus (HCV) Screening 1980 TdaP Immunization 1980 Hepatitis B Immunization (1 of 3 - 19+ 3-dose series) 1999 Pap Smear 2001 Human Papillomavirus (HPV) Immunization (1 - 3-dose SCDM series) 2007 Cervical Cancer Screening (CCS) 2010 HPV/Cotest 2010 Mammogram 01/29/2022 01/29/2021 Influenza Immunization (#1) 2025 SARS-COV-2 Immunization (3 - season) 2025 11/12/2020, 10/15/2020 Respiratory Syncytial Virus (RSV) Immunization (Adult) (1 - 1-dose 75+ series) 2055 Discussion re Starting/Frequency of Mammograms Completed 01/29/2021 Meningococcal Immunization (ACWY) Aged Out No longer eligible b ased on patient's age to complete this topic Pneumococcal Immunization Combined Aged Out No longer eligible b ased on patient's age to complete this topic Rotavirus Immunization Aged Out No lo nger eligible based on patient's age to complete this topic Insurance [place] [id number] Care Teams Sanitation Associate Relationship Specialty Start Date End Date Edie Millard, ASSISTANT SHIFT SUPERVISOR, SUPERVISOR CELL ROOM [address] [address] PCP - General Advanced Practice Nurse 04/29/20
--- OUTSIDE RECORDS SUMMARY | 2025-03-12 17:26 | XMS_ITS | Encounter Summary ---
Author Organization [facility] Address [address] [place] [address] Phone Care Team Providers Care Protection Analyst Name Role Phone Edie Millard APRN, BOX SORTER Primary Care Prov ider Reason for Visit * Reason Comments Medication Refill Encounter Details Date Type Department Care Team (Late st Contact Info) Description 07/13/2022 Refill [facility] [address] [place] [phone] Edie Millard APRN, BOX SORTER [address] [address] Medication Refill Social History Tobacco [...] encounter Miscellaneous Notes * Telephone Encounter - Mary Castañeda RN - 07/14/2022 11:58 AM SALES OPERATIONS DIRECTOR Per nursing clinical judgement, provider to review and approve the medication(s) order(s) if appropriate. Requested Prescriptions Pending Prescriptions Disp Refills albuterol 108 (90 Base) MCG/ACT Aerosol Solution [Pharmacy Med Name: ALBUTEROL HFA INH (200 PUFFS)8.5GM] 8.5 g 2 Sig: INHALE 2 PUFFS BY MOUTH EVERY 4 HOURS NEEDED FOR COUGH OR WHEEZING Short Acting Inhaled Beta-Agonists Protocol Passed - 07/13/2022 5:28 PM Passed - Visit with relevant provider in past 12 months or upcoming 90 days Recent Visits Date Type Provider Dept 08/04/21 Office Visit Edie Millard APRN, RODNEY [facility] Showing recent visits within past 365 days and meeting all other requirements Future Appointments No visits were found meeting these conditions. Showing future appointments within next 90 days and meeting all other requirements S OPERATIONS DIRECTOR documented in this encounter Plan of Treatment Not on file documented as of this encounter Visit Diagnoses Diagnosis Dyspnea on exertion Other dyspnea and respiratory abnormality documented in this encounter Additional Health Concerns Assessment Noted Time PHQ-9 Depression Total Score: 0 02/19/20 21 7:31 AM CDT documented as of this encounter Care Teams Protection Analyst Relationship Specialty Start Date End Date Edie Millard APRN, RODNEY [address] [phone] PCP - General Advanced Practice Nurse 04/29/20 documented as of this encounter
== END 2025-03-12 17:07 | disposition home or self-care (01) ==
PROVIDERS: PCP Nurse Practitioner
DX: J44.1 Chronic obstructive pulmonary disease with (acute) exacerbation (principal)
CPT/HCPCS: 94640; 99213; G0463